=== PATIENT | male | born 1950 | race Caucasian/White ===

== ENCOUNTER 2020-06-25 02:54 | Inpatient (IN) | payer MEDICARE ==
[2020-06-25] MEDS ORDERED: Ondansetron PF 4 MG/2 ML Vial ONE (03:20)
[2020-06-25] MEDS ORDERED: Dicyclomine 20 MG TAB ONE (03:20)
[2020-06-25 03:41] LABS: #Eosinphils 0.1 thou/uL (0.0-0.7); #Lymphocytes 1.3 thou/uL (1.20-3.40); #Monocytes 0.6 thou/uL (0.11-0.59); #Neutrophils 8.6 thou/uL (1.40-6.50); %Basophils 0.3 % (0.0-1.0); %Eosinophils 0.7 % (0.0-10.0); %Lymphocytes 12.4 % (21.0-51.0); %Monocytes 5.5 % (0.0-10.0); %Neutrophils 81.1 % (42.0-75.0); Mean Corpuscular HGB CONC 34.3 g/dL (32.0-36.0); Mean Corpuscular Hemoglobin 32.1 pg (27.0-31.0); Mean Corpuscular Volume 93.7 fL (78.0-98.0); Mean Platelet Volume 7.2 fL (7.4-10.4); Platelet Count 321 thou/uL (130-400); RBC Distribution Width 12.5 % (11.5-14.5); Red Blood Cell (RBC) Count 5.29 mill/uL (4.70-6.10); White Blood Cell (WBC) Count 10.5 thou/uL (4.8-10.8)
[2020-06-25 04:03] LABS: ALT (SGPT) 487 U/L (8-55); AST (SGOT) 277 U/L (5-34); Albumin 3.7 g/dL (3.4-4.8); Alkaline Phosphatase 88 U/L (40-110); Anion Gap 15 mmol/L (10-20); BUN (Urea Nitrogen) 23 mg/dL (8.4-25.7); Bilirubin, Total 8.8 mg/dL (0.2-1.2); Calc. Creatinine Clearance 0 mL/min (70-130); Calcium 9.4 mg/dL (7.8-10.44); Carbon Dioxide 24 mmol/L (23-31); Chloride 101 mmol/L (98-107); Estimated GFR-MDRD Greater than 90; Globulin 3.9 g/dL (2.4-3.5); Glucose 158 mg/dL (80-115); Potassium 3.4 mmol/L (3.5-5.1); Protein, Total 7.6 g/dL (5.8-8.1); Sodium 137 mmol/L (136-145)
[2020-06-25 04:17] LABS: Lipase 6825 U/L (8-78)
[2020-06-25] MEDS ORDERED: Morphine 4 MG/ML VIAL ONE (05:45)
[2020-06-25] MEDS ORDERED: Ondansetron ODT 4 MG TAB SL PRN (07:30)
[2020-06-25] MEDS ORDERED: Ondansetron PF 4 MG/2 ML Vial IVP PRN ×2 (07:30→07:41)
[2020-06-25] MEDS ORDERED: Acetaminophen 325 MG TAB PO PRN (07:30)
[2020-06-25] MEDS ORDERED: Sodium Chloride 0.9% 1,000 ML IV SCH ×2 (07:30→07:45)
[2020-06-25] MEDS ORDERED: Ondansetron ODT 4 MG TAB PO PRN (07:41)
[2020-06-25] MEDS ORDERED: Potassium Chloride 20 MEQ TAB PO SCH (07:45)
--- NOTE | 2020-06-25 08:01 | PDOC.HHP ---
Hospitalist HPI - History of Present Illness Abdominal pain History of Present Illness: ADMISSION DATE: 02/22/2010 TIME OF ASSESSMENT: 0700 PRIMARY CARE PHYSICIAN: CHIEF COMPLAINT: Dr. Chu HPI: This is a 69-year-old gentleman who presents to the emergency department with complaints of abdominal pain. Said first started last night and reports associated nausea with vomiting. Denies any hematemesis and states he was dry heaving. The dry heaving has since settled but his abdominal discomfort continu es. Denies having any pain like this in the past. Denies any associated fevers chills or sweats. Reports having chronically loose stools due to history of ulcerative colitis status post bowel resection. Has not noted any changes in the stools. At present the discomfort is a 3 out of 10 in severity mainly C upper abdomen described as a cramping sensation. ED COURSE: In the ED the patient had an EKG done showing normal sinus rhythm with a heart rate of 70. No ST changes or T wave abnormalities. He received 4 mg of IV ondansetron for nausea. He was given 1 L of normal saline. For abdominal cramping he received 20 mg of dicyclomine IM. Also given 4 mg of IV morphine. Laboratory studies done showed a white count of 10.5, hemoglobin 17, hematocrit 49.6, platelets 321, neutrophils 81.1%. Potassium 3.4. BUN 23, creatinine 0.79, GFR greater than 90. Total bilirubin 8.8, AST 277, ALT 47, alk phos 88, troponin negative. Lipase 6825. CT abdomen and pelvis done with radiology report pending. PAST MEDICAL HISTORY: 1. Ulcerative colitis 2. Obesity 3. Glaucoma PAST SURGICAL HISTORY: 1. Bowel resection for ulcerative colitis 2. Tonsillectomy 3. Eye surgery SOCIAL HISTORY: Denies any history of alcohol consumption. Denies any tobacco use or drug use. He is fully independent at baseline. Walks without the use of assistive devices. FAMILY HISTORY: His father was diagnosed with colon cancer. ALLERGIES: No known drug allergies CURRENT MEDICATIONS: 1. Aspirin 81 mg p.o. daily 2. Sulfasalazine 500 mg p.o. daily 3. Bisoprolol 5 mg p.o. daily - Exam General Appearance: NAD, awake alert General - other findings: Vital signs: Temp 98.1, HR 84, RR 18, O2 sat 97% on room air, BP 141/76. Eye: PERRL, anicteric sclera ENT: normocephalic atraumatic, no oropharyngeal lesions Neck: supple, no lymphadenopathy Heart: RRR, normal peripheral pulses Respiratory: CTAB, no wheezes, no rales, no ronchi, normal chest expansion, no tachypnea Gastrointestinal: soft, non-distended, no guarding Gastrointestinal - other findings: discomfort w/palpation across upper abdomen, worse in epigastric/RUQ area Extremities: no edema Skin: normal turgor, no lesions, no rashes Neurological: cranial nerve grossly intact, normal sensation to touch, no weakness Musculoskeletal: normal tone, normal strength, no muscle wasting Psychiatric: normal affect, normal behavior, A&O x 3 Hospitalist Results - Labs Result Diagrams: 06/25/20 03:24 06/25/20 03:24 Lab results: WBC 10.5 thou/uL (4.8-10.8) 06/25/20 03:24 Hgb 17.0 g/dL (14.0-18.0) 06/25/20 03:24 Hct 49.6 % (42.0-52.0) 06/25/20 03:24 MCV 93.7 fL (78.0-98.0) 06/25/20 03:24 Plt Count 321 thou/uL (130-400) 06/25/20 03:24 Neutrophils % 81.1 % (42.0-75.0) H 06/25/20 03:24 Sodium 137 mmol/L (136-145) 06/25/20 03:24 Potassium 3.4 mmol/L (3.5-5.1) L 06/25/20 03:24 Chloride 101 mmol/L (98-107) 06/25/20 03:24 Carbon Dioxide 24 mmol/L (23-31) 06/25/20 03:24 BUN 23 mg/dL (8.4-25.7) 06/25/20 03:24 Creatinine 0.79 mg/dL (0.7-1.3) 06/25/20 03:24 Glucose 158 mg/dL (80-115) H 06/25/20 03:24 Calcium 9.4 mg/dL (7.8-10.44) 06/25/20 03:24 Total Bilirubin 8.8 mg/dL (0.2-1.2) H 06/25/20 03:24 AST 277 U/L (5-34) H 06/25/20 03:24 ALT 487 U/L (8-55) H 06/25/20 03:24 Alkaline Phosphatase 88 U/L (40-110) 06/25/20 03:24 Troponin I 0.012 ng/mL (< 0.028) 06/25/20 03:24 Serum Total Protein 7.6 g/dL (5.8-8.1) 06/25/20 03:24 Albumin 3.7 g/dL (3.4-4.8) 06/25/20 03:24 Lipase 6825 U/L (8-78) H 06/25/20 03:24 - Radiology Interpretation CT scan - abdomen Status: pending Hospitalist H&P A/P - Problem (1) Pancreatitis Code(s): K85.90 - ACUTE PANCREATITIS WITHOUT NECROSIS OR INFECTION, UNSP Status: Acute Assessment and Plan: Continue IV fluids Morphine prn for pain GI consult placed Lipid panel ordered CT A/P reading pending. Lactic acid ordered. (2) Hyperbilirubinemia Code(s): E80.6 - OTHER DISORDERS OF BILIRUBIN METABOLISM Status: Acute Assessment and Plan: Monitor LFTs. Check coags and direct bili. RUQ US ordered. GI consult placed. NPO pending GI review. (3) Ulcerative colitis Code(s): K51.90 - ULCERATIVE COLITIS, UNSPECIFIED, WITHOUT COMPLICATIONS Status: Chronic Assessment and Plan: Hold sulfasalazine for now given elevated LFTs. GI recommendations appreciated. (4) Electrolyte abnormality Code(s): E87.8 - OTH DISORDERS OF ELECTROLYTE AND FLUID BALANCE, NEC Status: Acute Assessment and Plan: K+ 3.3, will replace. Check Mg+ Monitor electrolytes and replace as needed. - Plan Plan: GI prophylaxis with Famotidine. DVT Prophylaxis with mechanical SCDs. Patient ambulatory. Consider pharmacoprophylaxis if no indication to hold for procedure. (Awaiting CT abdomen/pelvis report). CODE STATUS FULL Case discussed with attending who agrees with plan as above.
--- NOTE | 2020-06-25 08:24 | CT ---
PRELIMINARY REPORT/[facility]/EMERGENCY AFTER HOURS PROCEDURE: EXAM: CT Abdomen and Pelvis with Intravenous Contrast CLINICAL HISTORY: 69yo M with hx of ulcerative colitis status post resection presents for epigastric abdominal pain. St ates he first experienced it last night accompanied by nausea and vomiting but was able to get to bed TECHNIQUE: Axial computed tomography images of the abdomen and pelvis with intravenous contrast. CONTRAST: With; ISOVUE 370,100mL COMPARISON: NONE PROVIDED. FINDINGS: LUNG BASES: No basilar airspace consolidation or pleural effusion. Some chronic appearing pleuroparenchymal suero ges at the lung bases. LIVER: Unremarkable. GALLBLADDER AND BILE DUCTS: There is a small stone present within the gallbladder which is mostly contracted. Intra-and extrahep atic biliary tree however are quite prominent, especially in the lateral segment of the left lobe. N o obvious ductal stones are seen. No obvious mass. Pancreas: Abundant peripancreatic mesenteric induration is noted with fairly normal appearing enhancement of th e pancreas itself. No mass, pseudocyst, or evidence of pancreatic necrosis. SPLEEN: Unremarkable. ADRENAL GLANDS: Unremarkable. KIDNEYS, URETERS, AND BLADDER: Unremarkable. No hydronephrosis or nephrolithiasis. No ureteral or bladder calculi. STOMACH AND BOWEL: Status post near total colectomy. Remaining GI segments without specific abnormalities. APPENDIX: No CT evidence for appendicitis. PERITONEUM: No free fluid. No free air. LYMPH NODES: No lymphadenopathy. VASCULATURE: No aortic aneurysm. BONES: No fracture or suspicious osseous abnormality. Degenerative changes of the lumbar spine. ABDOMINAL WALL AND SOFT TISSUES: Unremarkable. IMPRESSION: Acute pancreatitis. Small gallstone. Some intra-and extrahepatic biliary dilatation is noted. Nghia elation with liver function tests is recommended. ELECTRONICALLY SIGNED BY: Lorenzo Dumont MD Jun 25, 2020 4:44:35 AM AIRCRAFT ENGINEER This report is intended for review by the ordering physician only, in accordance of law. If you recei ve this report in error, please call [facility] at [phone]. FINAL REPORT EMERGENCY AFTER HOURS CT ABDOMEN AND PELVIS PERFORMED WITH IV CONTRAST ENHANCEMENT: Date: 06/25/2020 HISTORY: Patient has a history of ulcerative colitis, now with abdominal pain more epigastric. FINDINGS: Lung bases show some peripheral reticular opacity in the right base. This could be largely on the bas is of scar. There are some more confluent parenchymal changes within the left lower lobe. These are s till felt to be more likely atelectatic than infiltrative in nature. The liver shows diffuse fatty change. The spleen is within normal limits of size. There are peripancr eatic inflammatory changes compatible with pancreatitis. Small probable stone is seen in the gallblad jaye neck. The gallbladder itself is not distended. There is intrahepatic ductal dilatation with moder ate dilatation of the left biliary ducts and the extrahepatic duct appears dilated. I do not visualiz e a definite ductal calculus. Right and left adrenal glands, and right and left kidneys are normal in size. No significant periaort ic or mesenteric adenopathy. CT of pelvis was performed with contrast enhancement. There are partial colectomy changes noted. No a denopathy, mass, or free fluid. IMPRESSION: 1. Radiographic changes of pancreatitis. There is a small gallstone in the gallbladder neck and ther e is intra and extrahepatic biliary ductal dilatation. The intrahepatic ductal dilatation is unusual in that it predominantly involves the left lobe; however, I can see the confluence of the right and l eft bile ducts forming the common bile duct. I do not see any type of concerning mass in this region. I do not see a definite ductal calculus, but this should be a definite consideration in this case, a nd consideration for ERCP or MRCP would be recommended. 2. Fatty change of the liver. 3. Partial colectomy change noted. Report in basic agreement with the preliminary report issued by [facility]. [place]: [facility] [place]
[2020-06-25] MEDS: Morphine 4 MG/ML VIAL SLOW IVP PRN ×3 (09:00→19:50)
[2020-06-25] MEDS ORDERED: Famotidine 20 MG TAB PO SCH (09:00)
[2020-06-25 09:35] LABS: Lactic Acid 1.5 mmol/L (0.5-2.2)
[2020-06-25 09:37] LABS: INR-International Normal Ratio 1.1; PTT 26.2 sec (22.9-36.1); Prothrombin Time 14.4 sec (12.0-14.7)
[2020-06-25 09:51] LABS: Bilirubin, Direct 5.6 mg/dL (0.1-0.3); Cardiac Risk 4.5 (Less than 4.5)
[2020-06-25 09:56] VITALS: BMI 33.4
--- NOTE | 2020-06-25 10:41 | ULT ---
RIGHT UPPER QUADRANT ULTRASOUND: Date: 06/25/2020 COMPARISON: CT abdomen and pelvis 06/25/2020. HISTORY: Right upper quadrant pain, pancreatitis, assess for cholelithiasis. TECHNIQUE: Multiplanar Adler scale sonographic imaging of the right upper quadrant provided. FINDINGS: Imaged portions of the pancreas demonstrate mild heterogeneity. The pancreas is not well visualized o n this study secondary to bowel gas and is well assessed on the 06/25/2020 CT exam. The hepatic paren chyma is mildly echogenic and heterogeneous suggesting hepatocellular disease, such as steatosis. The re is intrahepatic biliary dilatation, better assessed on recent CT examination. There are multiple s ubcentimeter shadowing stones within the gallbladder lumen. Gallbladder wall is upper limits of jarret l in size. The chart calculator reports a positive Olson's sign. No significant pericholecystic fluid is seen. The common bile duct measures 5.0 mm. Right kidney measures 12.7 cm in craniocaudal dimension and demonstrates no evidence for stone, hydro nephrosis, or mass lesion. There is a probable tiny cyst within the right kidney measuring 7-8 mm. IMPRESSION: Intrahepatic biliary dilatation, better assessed on recent CT exam. There is cholelithiasis with uppe r limits of normal gallbladder wall thickness and positive Olson's sign. Positive Olson's sign coul d reflect acute cholecystitis, or could be related to right upper quadrant pain associated with acute pancreatitis seen on recent CT. GI consultation is advised with regard to the intrahepatic biliary d ilatation seen on this examination. POS: [facility]
[2020-06-25] MEDS: Sodium Chloride 0.9% 1,000 ML IV SCH ×4 (13:17→22:22)
[2020-06-25 13:36] LABS: #Basophils 0.1 thou/uL (0.0-0.2); #Lymphocytes 1.7 thou/uL (1.20-3.40); #Monocytes 0.9 thou/uL (0.11-0.59); #Neutrophils 11.2 thou/uL (1.40-6.50); %Basophils 0.4 % (0.0-1.0); %Eosinophils 0.3 % (0.0-10.0); %Monocytes 6.3 % (0.0-10.0); Hemoglobin 15.8 g/dL (14.0-18.0); Mean Corpuscular HGB CONC 33.7 g/dL (32.0-36.0); Mean Corpuscular Hemoglobin 31.8 pg (27.0-31.0); Mean Corpuscular Volume 94.3 fL (78.0-98.0); Mean Platelet Volume 7.3 fL (7.4-10.4); Platelet Count 322 thou/uL (130-400); RBC Distribution Width 12.6 % (11.5-14.5); Red Blood Cell (RBC) Count 4.96 mill/uL (4.70-6.10); White Blood Cell (WBC) Count 13.9 thou/uL (4.8-10.8)
[2020-06-25] MEDS ORDERED: Iopamidol-370 76% 500 ML 1 ML ONE (13:54)
[2020-06-25 14:00] LABS: ALT (SGPT) 387 U/L (8-55); AST (SGOT) 197 U/L (5-34); Albumin 3.2 g/dL (3.4-4.8); Alkaline Phosphatase 80 U/L (40-110); Anion Gap 12 mmol/L (10-20); BUN (Urea Nitrogen) 17 mg/dL (8.4-25.7); Bilirubin, Total 7.6 mg/dL (0.2-1.2); Calc. Creatinine Clearance 158 mL/min (70-130); Calcium 8.4 mg/dL (7.8-10.44); Carbon Dioxide 24 mmol/L (23-31); Chloride 107 mmol/L (98-107); Estimated GFR-MDRD Greater than 90; Globulin 3.7 g/dL (2.4-3.5); Glucose 112 mg/dL (80-115); Potassium 3.8 mmol/L (3.5-5.1); Protein, Total 6.9 g/dL (5.8-8.1); Sodium 139 mmol/L (136-145)
--- NOTE | 2020-06-25 14:29 | CON ---
DATE OF CONSULTATION: REASON FOR CONSULT: Pancreatitis and hyperbilirubinemia. HISTORY OF PRESENT ILLNESS: Mr. Marroquin is a 69-year-old gentleman, who came into the emergency room here last night about 3 a.m. with three days of severe abdominal pain, initially started about 2 to 3 days ago, epigastrium radiating to the back, then got a little better, but then it got worse, he decided to come in. He knows his stomach has not really felt right for several months, just vague discomfort at times. He was found to have acute pancreatitis, admitted to the hospital. He received 1 L of fluid in the ER and was placed on 100 mL an hour here. I was not called to see the patient, was notified by the nursing station of the consult this morning. By the time I am seeing him, he has received about 1.5 L of fluids since he has been here. He has urinated once. His pain is a little bit better controlled with narcotics. He denies any fever or chills. Denies any rigors. Denies any melena, hematochezia, or hematemesis. He does not recall the color of his urine. He denies pruritus. On admission, his bilirubin was 8.8 with an AST and ALT of 277 and 47 and a lipase of 6825. His BUN and creatinine were 23 and 0.78. His hemoglobin of 17, white count of 10, and a platelet count of 321. The patient denies any significant alcohol use. Here, he had a CAT scan of abdomen and pelvis that showed a stone in the gallbladder. Intra and extrahepatic biliary tree dilatation, left lobe more so. Abundant pancreatic mesenteric induration with normal enhancement. Ultrasound at 7:20 today showed intrahepatic ductal dilatation, cholelithiasis. PAST MEDICAL HISTORY: 1. No prior admissions for pancreatitis that the patient knows of. He does have a history of ulcerative colitis with subtotal colectomy and ileorectal anastomosis. This has not bothered him since that was done. 2. Obesity. 3. Glaucoma. PAST SURGICAL HISTORY: Above noted colon resection, tonsillectomy, and retinal surgery. SOCIAL HISTORY: The patient does not drink alcohol on regular basis. Does not smoke or use drugs. FAMILY HISTORY: His father had colon cancer. No family history of pancreatic disease. ALLERGIES: NONE KNOWN. MEDICATIONS: Medicines at home; 1. Aspirin. 2. Sulfasalazine. 3. Bisoprolol. Medications here; 1. He has received 1.5 L of fluid. 2. Tylenol. 3. Pepcid b.i.d. 4. Zofran. 5. IV fluid normal saline 100 an hour. PHYSICAL EXAMINATION: VITAL SIGNS: Temperature is 98.6, his pulse is 79 at 11 and it was 84 at 7, and blood pressure 149/76. GENERAL: He is resting in bed. He just received some morphine. HEENT: He is not appreciably icteric that I can tell, although the fluorescent lighting makes it difficult to know. NECK: Supple without nodes. LUNGS: Clear. HEART: Regular without clicks or murmurs. ABDOMEN: Soft. He is mildly tender in the epigastrium without rebound or guarding. There is no palpable hepatosplenomegaly. There is no bruising in the flanks or umbilical area. EXTREMITIES: No clubbing, cyanosis, or edema. LABORATORY DATA: Repeat chemistry showed a bilirubin of 5.6 direct and a magnesium of 2, triglycerides of 80. Lipase, electrolytes, and CBC have not been rechecked. ASSESSMENT: 1. This is a gentleman with severe gallstone pancreatitis. He has had inadequate fluid resuscitation, receiving only a liter in the ER and 100 mL an hour since admission. He is at high risk for developing complications of pancreatitis including necrotizing pancreatitis, pseudocyst and phlegmon. 2. He has elevated liver enzymes suggestive of choledocholithiasis etiology, it is unclear if he has passed the stone at this point in time. He shows no signs of cholangitis. RECOMMENDATIONS: Aggressive fluid resuscitation. I have called in orders 2 hours ago to the nurse for normal saline at 250 mL an hour. Repeat labs now to see if he is responding to resuscitation and how he is doing. If he has decompensation, he needs to be moved to the ICU. If he develops any signs of cholangitis, he would need ERCP. If he shows signs of not passing the stone with his labs at 24 hours, he may need an ERCP. At present, we will not proceed with ERCP as the risk outweighs the benefits. He is less than 12 hours in the hospitalization, he shows no signs of cholangitis. These were discussed with the patient, the nurse, and primary physician. Job ID: [id number]
[2020-06-26] MEDS ORDERED: Morphine 4 MG/ML VIAL SLOW IVP PRN (01:10)
[2020-06-26] MEDS: Acetaminophen 325 MG TAB PO PRN ×2 (01:28→23:24)
[2020-06-26] MEDS: Sodium Chloride 0.9% 1,000 ML IV SCH ×2 (02:22→06:19)
[2020-06-26 05:48] LABS: #Eosinphils 0.1 thou/uL (0.0-0.7); #Lymphocytes 2.1 thou/uL (1.20-3.40); #Monocytes 1.3 thou/uL (0.11-0.59); #Neutrophils 12.9 thou/uL (1.40-6.50); %Basophils 0.3 % (0.0-1.0); %Eosinophils 0.3 % (0.0-10.0); %Lymphocytes 12.6 % (21.0-51.0); %Monocytes 8.1 % (0.0-10.0); %Neutrophils 78.6 % (42.0-75.0); Hemoglobin 14.9 g/dL (14.0-18.0); Mean Corpuscular HGB CONC 34.1 g/dL (32.0-36.0); Mean Corpuscular Hemoglobin 31.6 pg (27.0-31.0); Mean Corpuscular Volume 92.7 fL (78.0-98.0); Mean Platelet Volume 7.7 fL (7.4-10.4); Platelet Count 292 thou/uL (130-400); RBC Distribution Width 12.6 % (11.5-14.5); Red Blood Cell (RBC) Count 4.72 mill/uL (4.70-6.10); White Blood Cell (WBC) Count 16.4 thou/uL (4.8-10.8)
[2020-06-26 06:11] LABS: ALT (SGPT) 267 U/L (8-55); AST (SGOT) 108 U/L (5-34); Albumin 2.9 g/dL (3.4-4.8); Alkaline Phosphatase 78 U/L (40-110); Anion Gap 12 mmol/L (10-20); BUN (Urea Nitrogen) 14 mg/dL (8.4-25.7); Bilirubin, Total 6.3 mg/dL (0.2-1.2); Calc. Creatinine Clearance 151 mL/min (70-130); Calcium 7.7 mg/dL (7.8-10.44); Carbon Dioxide 24 mmol/L (23-31); Chloride 108 mmol/L (98-107); Estimated GFR-MDRD Greater than 90; Glucose 104 mg/dL (80-115); Lipase 794 U/L (8-78); Magnesium 1.8 mg/dL (1.6-2.6); Potassium 3.3 mmol/L (3.5-5.1); Protein, Total 6.2 g/dL (5.8-8.1); Sodium 141 mmol/L (136-145)
--- NOTE | 2020-06-26 08:11 | CON ---
DATE OF CONSULTATION: 06/26/2020 CONSULTING PHYSICIAN: Hospitalist Service. REASON FOR CONSULTATION: Pancreatitis and cholelithiasis. HISTORY OF PRESENT ILLNESS: The patient is a 69-year-old white male. He was admitted to the hospital early yesterday morning with severe abdominal pain. He noted some degree of abdominal discomfort for the past few days. It became severe early yesterday morning. When he presented to the hospital, he had laboratory and radiologic evaluation. He was noted on CT scan to have evidence of pancreatitis and cholelithiasis. Laboratory studies revealed evidence of pancreatitis with hyperbilirubinemia. His bilirubin level was 8.8, AST and ALT were elevated and lipase was elevated at 6825. His hemoglobin was 17. His white blood cell count was 10.5. He was made n.p.o., given IV fluids and admitted to the hospital. Gastroenterology consultation was obtained with Dr. Mcallister yesterday. He instituted much higher volume IV fluid resuscitation. The patient has been receiving 250 mL/h for the past 24 hours. He notes that he has urinated substantial volumes overnight. He had some vomiting before he presented. He now feels somewhat bloated and nauseated. He has had a couple of bowel movements since he has been in a hospital. He notes his discomfort is much better than when he presented. He has not really ambulated at all as he tells me he feels weak. Subsequent laboratory studies had been obtained yesterday and today and show that his white blood cell count has gone up and is currently 16.4, hemoglobin is relatively stable at 14.9. His electrolytes show some current hypokalemia and hyperchloremia. His creatinine remains normal at 0.6. His bilirubin has dropped down to 6.3 this morning. His AST and ALT have trended downwards as well. His lipase has dropped down to 794. PAST MEDICAL HISTORY: 1. History of ulcerative colitis. 2. Glaucoma. 3. Hypertension. PAST SURGICAL HISTORY: 1. Subtotal colectomy in 2005 in treatment of his ulcerative colitis. 2. Tonsillectomy. 3. Retinal surgery. CURRENT MEDICATIONS: 1. Aspirin. 2. Sulfasalazine. 3. Bisoprolol. ALLERGIES: NO KNOWN DRUG ALLERGIES. PRIMARY CARE PHYSICIAN: Dr. Rowe. LOWER IN SUPERVISOR: Dr. Queen. PERSONAL SOCIAL HISTORY: He is with one child. He is a retired [employer] consultant. He currently lives by himself in [place]. He does not smoke and does not drink alcohol significantly. Denies illegal drug use. REVIEW OF SYSTEMS: Patient notes that since his subtotal colectomy that he has had an average of about 6 loose bowel movements per day over the past 15 years. FAMILY HISTORY: Noncontributory. PHYSICAL EXAMINATION: VITAL SIGNS: Current temperature is 98.5, maximum temperature since admission is 100.0; pulse is 89; blood pressure 139/76. GENERAL: This is a well-developed, well-nourished, pleasant white male, resting in bed, in no acute distress. He is somewhat uncomfortable. He is alert and oriented x3. HEAD, EYES, EARS, NOSE, AND THROAT: Unremarkable. NECK: Supple without mass or tenderness. LUNGS: Clear to auscultation throughout. CARDIAC: Regular rate and rhythm without murmur. ABDOMEN: Nondistended. He has hypoactive, but definitely present bowel sounds. He has mild diffuse discomfort with more discomfort present on palpation of the upper abdomen. There are no peritoneal findings. EXTREMITIES: Unremarkable. LABORATORY DATA: As mentioned above. ASSESSMENT: The patient with acute pancreatitis. It appears to be secondary to cholelithiasis and associated with hyperbilirubinemia. Although his white blood cell count is trending upwards, his bilirubin level and lipase level and other liver function tests are all trending downwards. I suspect therefore that he likely passed a gallstone that initiated all of this. In light of his current discomfort, he is certainly not ready for cholecystectomy yet. I had a long discussion with the patient about gallstone pancreatitis and told that I would eventually recommend laparoscopic cholecystectomy at the point that his pancreatitis is improved to the point that I believe that he is safe to proceed with surgery. This maybe as early as tomorrow or perhaps the following day. I will decrease his IV fluid rate and correct for his electrolyte abnormalities. I believe he is safe to begin a clear-liquid diet. He should begin incentive spirometry so he does not develop atelectasis associated with his abdominal discomfort. I have also encouraged him to ambulate around the hospital floor several times per day. Thank you for this consult. I will continue to follow him while he is here in the hospital with plans for eventual laparoscopic cholecystectomy. Job ID: [id number]
[2020-06-26] MEDS: Pantoprazole 40 MG VIAL IVP SCH (08:44)
[2020-06-26] MEDS: D5 1/2 NS w/20 mEq KCL 1,000 ML IV SCH ×3 (08:44→23:25)
[2020-06-26] MEDS ORDERED: Electrolyte Replacement Protoc 1 EACH EACH FS SCH (09:15)
[2020-06-26] MEDS ORDERED: Electrolyte Replacement Protocol FS PRN (09:30)
[2020-06-26] MEDS ORDERED: Magnesium 2 GM/50 ML 2 GM in Premix Bag 1 BAG IVPB SCH (10:15)
[2020-06-26 10:17] LABS: SARS-CoV-2 MS2 Positive; SARS-CoV-2 N Gene Negative; SARS-CoV-2 S Gene Negative; SARS-CoV-2 by NAA Not Detected (NotDetected); SARS-CoV-2 orf1ab Negative
[2020-06-26] MEDS: Potassium Chloride 20 MEQ in Premix Bag 1 BAG IVPB SCH ×2 (11:57→13:38)
--- NOTE | 2020-06-26 14:24 | EKG ---
Test Reason : Blood Pressure : / mmHG Vent. Rate : 070 BPM Atrial Rate : 070 BPM P-R Int : 156 ms QRS Dur : 084 ms QT Int : 384 ms P-R-T Axes : 012 019 -02 degrees QTc Int : 414 ms Normal sinus rhythm Normal ECG Confirmed by RAMYA TOMPKINS DO ([id number]), editor school photograph EDSON FELDMAN ([id number]) on 06/26/2020 2:24:37 PM Referred By: Confirmed By:RAMYA TOMPKINS DO
--- NOTE | 2020-06-26 21:34 | PDOC.HOSPP ---
- Subjective Encounter Date: 06/26/20 Encounter Time: 10:00 - Objective Vital Signs & Weight: Vital Signs (12 hours) Temp Pulse Resp BP Pulse Ox 06/26/20 19:58 99.6 F 83 18 139/74 95 06/26/20 16:00 97.9 F 83 18 140/75 96 06/26/20 12:42 98.9 F 79 18 133/74 95 Weight Weight 219 lb 12.814 oz I&O: 06/25/20 06/26/20 06/27/20 06:59 06:59 06:59 Intake Total 5500 2610 Output Total 1600 Balance 3900 2610 Result Diagrams: 06/27/20 05:12 06/27/20 05:12 Hospitalist ROS - Medication Medications: Active Medications Generic Name Dose Route Start Last Admin Trade Name Freq PRN Reason Stop Dose Admin Acetaminophen 650 mg 06/26/20 01:25 06/26/20 01:28 Acetaminophen 325 Mg Tab PO 650 mg Q4H PRN Administration Headache/Fever or Pain Potassium Chloride/Dextrose/Sod Cl 1,000 mls @ 150 mls/hr 06/26/20 07:45 06/26/20 13:40 D5 1/2 Ns W/20 Meq Kcl IV Not Given .Q6H40M SANTIAGO Pantoprazole Sodium 40 mg 06/26/20 09:00 06/26/20 08:44 Pantoprazole 40 Mg Vial IVP 40 mg DAILY SANTIAGO Administration Hosp A/P - Plan This is a 69-year-old male with a history of ulcerative colitis status post subtotal colectomy and ileorectal anastomosis on admission on account of gallstone pancreatitis. Gallstone pancreatitis Currently on fluid swelling pain control. Once resolved plans for cholecystectomy GI/surgery on board. History of ulcerative colitis On sulfasalazinecurrently held We will monitor. Hypokalemia Check mag in a.m. Replacement protocol Obesity VT prophylaxis Lovenox CODE STATUSfull
[2020-06-27] MEDS: D5 1/2 NS w/20 mEq KCL 1,000 ML IV SCH (03:45)
--- NOTE | 2020-06-27 04:13 | PRG ---
DATE OF SERVICE: 06/26/2020 SUBJECTIVE: Mr. Marroquin feels better today. Still has some abdominal soreness. He has voided some. He is going to start liquids. OBJECTIVE: VITAL SIGNS: Temperature max 100 and that was on 06/26 at midnight, temperature current 98.9, pulse 76, blood pressure 133/74. ABDOMEN: filter press tender in the epigastrium, mildly. There are starting to be some bowel sounds. There are no bruising or lesions in the abdominal wall. EXTREMITIES: No clubbing, cyanosis, or edema. There is no presacral edema. LUNGS: Clear. LABORATORY DATA: Sodium 141, potassium 3.3, BUN and creatinine are 14 and 0.6, calcium 7.7, bilirubin 6.3 down from 7.6 yesterday, 8.8 on admission. AST and ALT are 108 and 267, down from 277 and 487 on admission. Lipase 794. ASSESSMENT: Biliary pancreatitis, improving. RECOMMENDATIONS: Agree with decreasing IV fluids. Agree with trial of clear liquids. Continue to follow LFTs. The patient will be ready for laparoscopic cholecystectomy hopefully in 24 to 48 hours. If liver enzymes remain elevated, may ultimately need ERCP. At present, there are no signs of cholangitis or sepsis. With improving labs, liver function test and lipase and clinical status, we will hold off on emergent ERCP for now. Job ID: [id number]
[2020-06-27 05:54] LABS: #Basophils 0.1 thou/uL (0.0-0.2); #Eosinphils 0.2 thou/uL (0.0-0.7); #Lymphocytes 2.7 thou/uL (1.20-3.40); #Monocytes 1.7 thou/uL (0.11-0.59); #Neutrophils 13.6 thou/uL (1.40-6.50); %Basophils 0.7 % (0.0-1.0); %Lymphocytes 14.6 % (21.0-51.0); %Monocytes 9.1 % (0.0-10.0); %Neutrophils 74.6 % (42.0-75.0); Hemoglobin 14.4 g/dL (14.0-18.0); Mean Corpuscular HGB CONC 34.2 g/dL (32.0-36.0); Mean Corpuscular Hemoglobin 31.7 pg (27.0-31.0); Mean Corpuscular Volume 92.6 fL (78.0-98.0); Mean Platelet Volume 8.1 fL (7.4-10.4); Platelet Count 281 thou/uL (130-400); RBC Distribution Width 12.5 % (11.5-14.5); Red Blood Cell (RBC) Count 4.54 mill/uL (4.70-6.10); White Blood Cell (WBC) Count 18.2 thou/uL (4.8-10.8)
[2020-06-27] MEDS: Acetaminophen 325 MG TAB PO PRN (06:03)
[2020-06-27] MEDS: Morphine 4 MG/ML VIAL SLOW IVP PRN ×4 (06:07→18:34)
[2020-06-27 06:18] LABS: ALT (SGPT) 189 U/L (8-55); AST (SGOT) 66 U/L (5-34); Alkaline Phosphatase 93 U/L (40-110); Anion Gap 11 mmol/L (10-20); BUN (Urea Nitrogen) 13 mg/dL (8.4-25.7); Bilirubin, Total 4.9 mg/dL (0.2-1.2); Calc. Creatinine Clearance 153 mL/min (70-130); Calcium 8.1 mg/dL (7.8-10.44); Carbon Dioxide 24 mmol/L (23-31); Chloride 104 mmol/L (98-107); Estimated GFR-MDRD Greater than 90; Globulin 3.4 g/dL (2.4-3.5); Glucose 124 mg/dL (80-115); Lipase 142 U/L (8-78); Potassium 3.2 mmol/L (3.5-5.1); Protein, Total 6.4 g/dL (5.8-8.1); Sodium 136 mmol/L (136-145)
[2020-06-27] MEDS: D5 1/2 NS w/40 mEq KCL 1,000 ML IV SCH ×2 (08:04→16:02)
[2020-06-27] MEDS: Pantoprazole 40 MG VIAL IVP SCH (08:10)
[2020-06-27] MEDS ORDERED: Magnesium 2 GM/50 ML 2 GM in Premix Bag 1 BAG IVPB SCH (08:30)
--- NOTE | 2020-06-27 08:50 | PRG ---
DATE OF SERVICE: 06/27/2020 SUBJECTIVE: Mr. Marroquin remains on the medical floor, having been admitted for gallstone pancreatitis. He tells me that he had a bad night, has felt very poorly today. He feels distended and has had significant abdominal pain. He is ambulating on the floor. He has had some clear liquids, but has had some nausea as well. PHYSICAL EXAMINATION: VITAL SIGNS: He is afebrile. Maximum temperature is a 100, pulse is 77, blood pressure 133/72. LUNGS: Clear to auscultation. ABDOMEN: Somewhat distended, but soft with hypoactive bowel sounds. He does seem to have less epigastric tenderness than previously. He reports that much of his discomfort is in his lower abdomen. LABORATORY DATA: His CBC shows that his white blood cell count continues to elevate. It was 16 yesterday, it is 18 today. Hemoglobin stable at 14. His liver function tests are all improving. His bilirubin has dropped from 6.3 to 4.9. His lipase has also dropped from 790 down to 140. His potassium level dropped down to 3.2. ASSESSMENT: Patient with gallstone pancreatitis. It appears to be resolving and this improving except for his white blood cell count. Although, it seems unlikely that he has an actual infectious process, I will start him on empiric antibiotics using Zosyn. He is encouraged to continue to ambulate and drink clear liquids. I will plan on his laparoscopic cholecystectomy and cholangiogram tomorrow. He clearly does not have findings that would be typical of cholangitis at this time. I have discussed all this with the patient. He understands and agrees to proceed in this fashion. Job ID: [id number]
[2020-06-27] MEDS: Potassium Chloride 20 MEQ in Premix Bag 1 BAG IVPB SCH ×2 (10:16→16:02)
[2020-06-27] MEDS: Polyethylene Glycol 3350 17 GM Packet PO SCH ×2 (10:24→22:30)
--- NOTE | 2020-06-27 11:38 | PRG ---
DATE OF SERVICE: 06/27/2020 SUBJECTIVE: Mr. Marroquin'pieter abdomen hurt pretty bad last night. It Feels much better today. He has had a small bowel movement. He is voiding. He has had no rigors or chills. OBJECTIVE: VITAL SIGNS: T-max yesterday 100, T current 98.5, pulse of 87, blood pressure 132/72. In's and out's 1600. NECK: Supple. LUNGS: Clear. Decreased breath sounds at the bases. HEART: Regular rate and rhythm. ABDOMEN: Protuberant. It is tender in the epigastrium, but less so than yesterday. LABORATORY DATA: White count is 18.2, up from 10 on admission, 16 yesterday. Hemoglobin is 14.4, down from 17 on admission. Platelets are 281. Sodium 136, potassium 3.2, being replaced. BUN and creatinine are 13 and 0.65. Magnesium is 2. Bilirubin is 4.9, down from 6.3 yesterday and 8.8 on admission. AST and ALT are 66 and 189, down from 108 and 267 yesterday. Albumin is 3, protein is 6.3, lipase is 142, down from 749 yesterday, 6825 on admission. ASSESSMENT: 1. Low-grade fever with increasing white count. I suspect it is related to his pancreatitis and not cholangitis as the liver tests are improving. His abdominal pain is better. Other concerns would be thrombotic complications such as deep venous thrombosis. He has no pain. No shortness of breath. Pneumonia will be a possibility as well. 2. Severe biliary pancreatitis, improved. RECOMMENDATIONS: 1. Agree with lap marta tomorrow if clinically stable with IOC. If IOC is positive GI will be available to perform endoscopic retrograde cholangiopancreatography at the same anesthetic. I have discussed with the patient the risks, benefits, and possible complications of that procedure and we will get consent on that. 2. Would continue liquids. 3. We would start on Lovenox. 4. We will get a chest x-ray if he has further fever. 5. Agree with starting Zosyn and we will follow along with you. Job ID: [id number]
[2020-06-27] MEDS: Piperacillin/Tazobactam 3.375 GM in Sodium Chloride 0.9% 100 ML IVPB SCH ×2 (13:15→18:36)
--- NOTE | 2020-06-27 21:40 | PDOC.HOSPP ---
- Subjective Encounter Date: 06/27/20 Encounter Time: 10:00 Subjective: Patient was seen and examined in bed. He said he felt generally better. Still having abdominal pain but no chest pain or shortness of breath - Objective Vital Signs & Weight: Vital Signs (12 hours) Temp Pulse Resp BP Pulse Ox 06/27/20 20:00 98.2 F 85 16 142/78 H 96 Weight Admit Weight 219 lb 12.814 oz Weight 219 lb 12.814 oz I&O: 06/26/20 06/27/20 06/28/20 06:59 06:59 06:59 Intake Total 5500 4290 1900 Output Total 1600 600 Balance 3900 4290 1300 Result Diagrams: 06/27/20 05:12 06/27/20 05:12 Hospitalist ROS - Medication Medications: Active Medications Generic Name Dose Route Start Last Admin Trade Name Freq PRN Reason Stop Dose Admin Acetaminophen 650 mg 06/26/20 01:25 06/27/20 06:03 Acetaminophen 325 Mg Tab PO 650 mg Q4H PRN Administration Headache/Fever or Pain Potassium Chloride/Dextrose/Sod Cl 1,000 mls @ 125 mls/hr 06/27/20 07:00 06/27/20 16:02 D5 1/2 Ns W/40 Meq Kcl IV Not Given .Q8H SANTIAGO Piperacillin Sod/Tazobactam 100 mls @ 200 mls/hr 06/27/20 12:00 06/27/20 18:36 Sod 3.375 gm/ Sodium Chloride IVPB 100 mls Q6HR SANTIAGO Administration Morphine Sulfate 4 mg 06/26/20 01:20 06/27/20 18:34 Morphine 4 Mg/Ml Vial SLOW IVP 4 mg Q4H PRN Administration PAIN 6-10 Ondansetron HCl 4 mg 06/25/20 07:41 06/27/20 06:04 Ondansetron Pf 4 Mg/2 Ml Vial IVP 4 mg Q6H PRN Administration Nausea/Vomiting Pantoprazole Sodium 40 mg 06/26/20 09:00 06/27/20 08:10 Pantoprazole 40 Mg Vial IVP 40 mg DAILY SANTIAGO Administration Polyethylene Glycol 17 gm 06/27/20 09:00 06/27/20 10:24 Polyethylene Glycol 3350 17 Gm Packet PO Not Given BID SANTIAGO - Exam General Appearance: awake alert Eye: PERRL, anicteric sclera Heart: RRR, no murmur, no rubs Respiratory: no wheezes, no rales, no ronchi, normal chest expansion Gastrointestinal: soft, normal bowel sounds, tender to palpation Extremities: no cyanosis, no clubbing, no edema Hosp A/P - Plan This is a 69-year-old male with a history of ulcerative colitis status post subtotal colectomy and ileorectal anastomosis on admission on account of gallstone pancreatitis. Gallstone pancreatitis Leukocytosis worsened today He was started on Zosyn Plan for laparoscopic cholecystectomy tomorrow N.p.o. after midnight GI/surgery following. History of ulcerative colitis On sulfasalazinecurrently held We will monitor. Hypokalemia Still hypokalemic Potassium 2.0 Replacement protocol Obesity VT prophylaxis Lovenox CODE STATUSfull
[2020-06-27] MEDS: Enoxaparin Sodium 40 MG/0.4 ML SYRINGE SC SCH (22:30)
[2020-06-28] MEDS: D5 1/2 NS w/40 mEq KCL 1,000 ML IV SCH ×3 (00:06→11:00)
[2020-06-28] MEDS: Morphine 4 MG/ML VIAL SLOW IVP PRN ×3 (00:06→19:57)
[2020-06-28] MEDS: Piperacillin/Tazobactam 3.375 GM in Sodium Chloride 0.9% 100 ML IVPB SCH ×4 (00:07→19:11)
[2020-06-28 06:25] LABS: #Basophils 0.1 thou/uL (0.0-0.2); #Eosinphils 0.3 thou/uL (0.0-0.7); #Lymphocytes 2.5 thou/uL (1.20-3.40); #Monocytes 1.4 thou/uL (0.11-0.59); #Neutrophils 11.7 thou/uL (1.40-6.50); %Basophils 0.5 % (0.0-1.0); %Lymphocytes 15.7 % (21.0-51.0); %Monocytes 8.8 % (0.0-10.0); Mean Corpuscular HGB CONC 34.3 g/dL (32.0-36.0); Mean Corpuscular Hemoglobin 32.4 pg (27.0-31.0); Mean Corpuscular Volume 94.5 fL (78.0-98.0); Platelet Count 264 thou/uL (130-400); RBC Distribution Width 12.5 % (11.5-14.5); Red Blood Cell (RBC) Count 4.32 mill/uL (4.70-6.10); White Blood Cell (WBC) Count 16.1 thou/uL (4.8-10.8)
[2020-06-28 06:39] LABS: ALT (SGPT) 127 U/L (8-55); AST (SGOT) 41 U/L (5-34); Albumin 2.8 g/dL (3.4-4.8); Alkaline Phosphatase 73 U/L (40-110); Anion Gap 11 mmol/L (10-20); BUN (Urea Nitrogen) 11 mg/dL (8.4-25.7); Bilirubin, Total 3.1 mg/dL (0.2-1.2); Calc. Creatinine Clearance 149 mL/min (70-130); Calcium 8.1 mg/dL (7.8-10.44); Carbon Dioxide 25 mmol/L (23-31); Chloride 102 mmol/L (98-107); Estimated GFR-MDRD Greater than 90; Globulin 3.6 g/dL (2.4-3.5); Glucose 116 mg/dL (80-115); Lipase 92 U/L (8-78); Magnesium 2.1 mg/dL (1.6-2.6); Potassium 3.8 mmol/L (3.5-5.1); Protein, Total 6.4 g/dL (5.8-8.1); Sodium 134 mmol/L (136-145)
[2020-06-28 06:44] LABS: Phosphorus 1.5 mg/dL (2.3-4.7)
[2020-06-28] MEDS: Pantoprazole 40 MG VIAL IVP SCH (08:52)
[2020-06-28] MEDS: Polyethylene Glycol 3350 17 GM Packet PO SCH (08:53)
[2020-06-28] MEDS ORDERED: Potassium Phosphate 22 MMOL in Sodium Chloride 0.9% 250 ML 250 ML IVPB SCH (12:00)
--- NOTE | 2020-06-28 12:03 | PRG ---
DATE OF SERVICE: 06/28/2020 SUBJECTIVE: Mr. Vargas belly feels better. OBJECTIVE: VITAL SIGNS: Temperature is 98.2, pulse is 80, blood pressure 135/71. ABDOMEN: Still protuberant but softer, less tender. LABORATORY DATA: White count 16.1, hemoglobin 14, and platelet count 264. Sodium 134, BUN and creatinine are 11 and 0.6, potassium 3.8, phosphorus 1.5, calcium 8.1, and bilirubin is down to 3.1 from 4.9. AST and ALT down to 41 and 127 from 66 and 189. Lipase is 92. ASSESSMENT: Biliary pancreatitis, improving. The patient is scheduled for a laparoscopic cholecystectomy today with IOC as he had dilated ducts on admission CT and elevated evidences of obstructive jaundice. He has had no signs of cholangitis, continues to improve. He is on some Zosyn now and that would be reasonable. If he spikes fever or any signs of worsening after laparoscopic cholecystectomy, he would need a repeat scan to evaluate for necrosis. We will continue to follow along with you and will be available for ERCP if IOC is positive. Job ID: [id number]
[2020-06-28] MEDS ORDERED: EPINEPHrine 1 MG/ML AMP ONE (16:10)
[2020-06-28] MEDS ORDERED: Bupivacaine 0.25% HCL 30 ML VIAL ONE (16:10)
[2020-06-28] MEDS ORDERED: Sodium Chloride 0.9% 100 ML ONE (16:12)
[2020-06-28] MEDS ORDERED: Piperacillin/Tazobactam 3.375 GM VIAL ONE (16:12)
[2020-06-28] MEDS ORDERED: Fentanyl 100 MCG/2 ML VIAL ONE (16:14)
[2020-06-28] MEDS ORDERED: Iothalamate Meglumine 60% 50 ML VIAL FS ONE (16:34)
[2020-06-28] MEDS ORDERED: Meperidine HCl/PF 25 MG/ML VIAL SLOW IVP PRN (17:13)
[2020-06-28] MEDS ORDERED: Morphine Sulfate 2 MG/ML SYRINGE SLOW IVP PRN (17:13)
[2020-06-28] MEDS ORDERED: Promethazine HCl 25 MG/ML VIAL IM PRN (17:13)
[2020-06-28] MEDS ORDERED: Ondansetron HCl/PF 4 MG/2 ML Vial IVP PRN (17:13)
[2020-06-28] MEDS ORDERED: Promethazine HCl 25 MG/ML VIAL SLOW IVP PRN (17:13)
[2020-06-28] MEDS ORDERED: Ketorolac Tromethamine 30 MG/ML VIAL IVP PRN (17:13)
[2020-06-28] MEDS ORDERED: PACU-Morphine 4MG/ML VIAL SLOW IVP PRN (17:13)
[2020-06-28] MEDS ORDERED: HYDROmorphone 2 MG/ML VIAL SLOW IVP PRN (17:13)
--- NOTE | 2020-06-28 18:03 | RAD ---
Intraoperative cholangiogram fluoroscopy HISTORY: Biliary obstruction. FINDINGS: Intraoperative fluoroscopy was provided for cholangiogram as performed by Dr. Graham there are 3 spot fluoroscopic images showing operative hardware overlying the gallbladder fossa. Contrast opacification of a distended cystic duct and biliary system with irregularity of the biliary kramer evident. A rounded filling defect at the central aspect of the common duct is estimated at 0.3 cm. Correlate with real-time findings for stone versus air bubble. Contrast passes into the duodenum. Fluoroscopy time 35 seconds.
[2020-06-28] MEDS: Enoxaparin Sodium 40 MG/0.4 ML SYRINGE SC SCH (19:57)
--- NOTE | 2020-06-28 22:58 | PDOC.HOSPP ---
- Subjective Encounter Date: 06/28/20 Encounter Time: 08:00 Subjective: Patient was seen and examined in bed. Abdominal pain improved but still persistent. He denied any chest pain or shortness of breath. - Objective Vital Signs & Weight: Vital Signs (12 hours) Temp Pulse Resp BP BP Pulse Ox 06/28/20 19:28 98.5 F 81 20 132/70 94 L 06/28/20 18:43 97.5 F L 83 20 138/68 98 06/28/20 12:25 98.3 F 76 18 137/71 96 Weight Admit Weight 219 lb 12.814 oz Weight 219 lb 12.814 oz I&O: 06/27/20 06/28/20 06/29/20 06:59 06:59 06:59 Intake Total 4290 2200 Output Total 600 Balance 4290 1600 Result Diagrams: 06/28/20 05:47 06/28/20 05:47 Hospitalist ROS - Medication Medications: Active Medications Generic Name Dose Route Start Last Admin Trade Name Freq PRN Reason Stop Dose Admin Acetaminophen 650 mg 06/26/20 01:25 06/27/20 06:03 Acetaminophen 325 Mg Tab PO 650 mg Q4H PRN Administration Headache/Fever or Pain Enoxaparin Sodium 40 mg 06/27/20 21:00 06/28/20 19:57 Enoxaparin Sodium 40 Mg/0.4 Ml Syringe SC Not Given 2100 SANTIAGO Potassium Chloride/Dextrose/Sod Cl 1,000 mls @ 125 mls/hr 06/27/20 07:00 06/28/20 11:00 D5 1/2 Ns W/40 Meq Kcl IV 1,000 mls .Q8H SANTIAGO Administration Piperacillin Sod/Tazobactam 100 mls @ 200 mls/hr 06/27/20 12:00 06/28/20 19:11 Sod 3.375 gm/ Sodium Chloride IVPB Not Given Q6HR SANTIAGO Morphine Sulfate 4 mg 06/26/20 01:20 06/28/20 19:57 Morphine 4 Mg/Ml Vial SLOW IVP 4 mg Q4H PRN Administration PAIN 6-10 Ondansetron HCl 4 mg 06/25/20 07:41 06/27/20 06:04 Ondansetron Pf 4 Mg/2 Ml Vial IVP 4 mg Q6H PRN Administration Nausea/Vomiting Pantoprazole Sodium 40 mg 06/26/20 09:00 06/28/20 08:52 Pantoprazole 40 Mg Vial IVP 40 mg DAILY SANTIAGO Administration - Exam General Appearance: awake alert Heart: RRR, no murmur, no gallops, normal peripheral pulses Respiratory: no wheezes, no rales, no ronchi Gastrointestinal: normal bowel sounds, no palpable masses, tender to palpation Extremities: no cyanosis, no clubbing, no edema Psychiatric: normal affect, A&O x 3 Hosp A/P - Plan This is a 69-year-old male with a history of ulcerative colitis status post subtotal colectomy and ileorectal anastomosis on admission on account of gallstone pancreatitis. He is due for laparoscopic cholecystectomy today Gallstone pancreatitis He is on Zosyn Plan for laparoscopic cholecystectomy today N.p.o. after midnight History of ulcerative colitis On sulfasalazinecurrently held We will monitor. Hypokalemia Replacement protocol Obesity VT prophylaxis Lovenox CODE STATUSfull
[2020-06-29] MEDS: D5 1/2 NS w/40 mEq KCL 1,000 ML IV SCH ×3 (00:34→18:08)
[2020-06-29] MEDS: Morphine 4 MG/ML VIAL SLOW IVP PRN ×2 (00:34→04:35)
[2020-06-29] MEDS: Piperacillin/Tazobactam 3.375 GM in Sodium Chloride 0.9% 100 ML IVPB SCH ×4 (00:35→18:42)
[2020-06-29 05:51] LABS: #Basophils 0.1 thou/uL (0.0-0.2); #Eosinphils 0.2 thou/uL (0.0-0.7); #Lymphocytes 1.7 thou/uL (1.20-3.40); #Monocytes 1.4 thou/uL (0.11-0.59); #Neutrophils 10.5 thou/uL (1.40-6.50); %Basophils 0.4 % (0.0-1.0); %Eosinophils 1.2 % (0.0-10.0); %Lymphocytes 12.3 % (21.0-51.0); %Monocytes 9.8 % (0.0-10.0); %Neutrophils 76.3 % (42.0-75.0); Hemoglobin 13.7 g/dL (14.0-18.0); Mean Corpuscular HGB CONC 33.6 g/dL (32.0-36.0); Mean Corpuscular Hemoglobin 31.1 pg (27.0-31.0); Mean Corpuscular Volume 92.4 fL (78.0-98.0); Mean Platelet Volume 7.2 fL (7.4-10.4); Platelet Count 300 thou/uL (130-400); RBC Distribution Width 12.4 % (11.5-14.5); Red Blood Cell (RBC) Count 4.41 mill/uL (4.70-6.10); White Blood Cell (WBC) Count 13.7 thou/uL (4.8-10.8)
[2020-06-29 06:14] LABS: ALT (SGPT) 136 U/L (8-55); AST (SGOT) 98 U/L (5-34); Albumin 2.7 g/dL (3.4-4.8); Alkaline Phosphatase 176 U/L (40-110); Anion Gap 12 mmol/L (10-20); BUN (Urea Nitrogen) 9 mg/dL (8.4-25.7); Bilirubin, Total 5.3 mg/dL (0.2-1.2); Calc. Creatinine Clearance 156 mL/min (70-130); Calcium 8.4 mg/dL (7.8-10.44); Carbon Dioxide 24 mmol/L (23-31); Chloride 104 mmol/L (98-107); Estimated GFR-MDRD Greater than 90; Globulin 4.1 g/dL (2.4-3.5); Glucose 107 mg/dL (80-115); Potassium 3.8 mmol/L (3.5-5.1); Protein, Total 6.8 g/dL (5.8-8.1); Sodium 136 mmol/L (136-145)
[2020-06-29 06:17] LABS: Phosphorus 1.8 mg/dL (2.3-4.7)
[2020-06-29] MEDS ORDERED: Potassium Phosphate 15 MMOL in Sodium Chloride 0.9% 100 ML IVPB SCH (07:00)
--- NOTE | 2020-06-29 10:09 | PRG ---
DATE OF SERVICE: 06/29/2020 SUBJECTIVE: Mr. Marroquin is postoperative day #1 from laparoscopic cholecystectomy with intraoperative cholangiogram. His cholangiogram revealed stones present within a common bile duct. He is scheduled for an ERCP this morning per Dr. Hirsch. The patient was seen in the preoperative holding area. He notes minimal appropriate abdominal discomfort. He tolerated liquids until he was made n.p.o. again. OBJECTIVE: VITAL SIGNS: On examination today, he is afebrile. Pulse is 85, blood pressure 145/79. LUNGS: Clear to auscultation. ABDOMEN: Soft with appropriate minimal shady-incisional tenderness. LABORATORY STUDIES: Revealed that his hemoglobin stable at 13.7, white blood cell count is slightly down at 13.7. Chemistry profile reveals normal electrolytes. His bilirubin has gone back up from 3.1 yesterday to 5.3 today. ASSESSMENT: The patient who is status post laparoscopic cholecystectomy with residual choledocholithiasis. He is to have endoscopic retrograde cholangiopancreatography today for duct clearance. He is stable from a surgical standpoint, will be ready for discharge whenever he is cleared by Gastroenterology. Job ID: [id number]
[2020-06-29] MEDS ORDERED: Lidocaine 1% PF 5 ML VIAL ONE (10:35)
[2020-06-29] MEDS ORDERED: Ondansetron PF 4 MG/2 ML Vial ONE (10:35)
[2020-06-29] MEDS ORDERED: PROPOFOL 200 MG/20 ML VIAL ONE (10:35)
[2020-06-29] MEDS ORDERED: Rocuronium Bromide 10 MG/ML (10ML VIAL) ONE (10:35)
[2020-06-29] MEDS ORDERED: Dexamethasone 20 MG/5 ML VIAL ONE (10:35)
[2020-06-29] MEDS ORDERED: Fentanyl 100 MCG/2 ML VIAL ONE (10:46)
[2020-06-29] MEDS ORDERED: SUGAMMADEX SODIUM 500 MG/5 ML VIAL ONE (10:47)
[2020-06-29] MEDS ORDERED: Iothalamate Meglumine 60% 50 ML VIAL FS ONE (10:47)
[2020-06-29] MEDS ORDERED: Indomethacin 50 MG SUPP ONE (10:50)
[2020-06-29] MEDS ORDERED: Sodium Chloride 0.9% 100 ML ONE (10:53)
[2020-06-29] MEDS ORDERED: Piperacillin/Tazobactam 3.375 GM VIAL ONE (10:53)
[2020-06-29] MEDS: Pantoprazole 40 MG VIAL IVP SCH (12:00)
[2020-06-29] MEDS: Polyethylene Glycol 3350 17 GM Packet PO SCH (12:00)
[2020-06-29] MEDS ORDERED: Meperidine HCl/PF 25 MG/ML VIAL ONE (12:16)
[2020-06-29] MEDS ORDERED: Ondansetron HCl/PF 4 MG/2 ML Vial IVP PRN (12:17)
[2020-06-29] MEDS ORDERED: Meperidine HCl/PF 25 MG/ML VIAL SLOW IVP PRN (12:17)
[2020-06-29] MEDS ORDERED: Promethazine HCl 25 MG/ML VIAL IM PRN (12:17)
[2020-06-29] MEDS ORDERED: Promethazine HCl 25 MG/ML VIAL SLOW IVP PRN (12:17)
[2020-06-29] MEDS ORDERED: HYDROmorphone 2 MG/ML VIAL SLOW IVP PRN (12:17)
--- NOTE | 2020-06-29 12:28 | RAD ---
EXAM: ERCP HISTORY: Common bile duct stones COMPARISON: Cholangiogram 06/28/2020, gallbladder ultrasound 06/25/2020, CT abdomen/pelvis 06/25/2020 FINDINGS: Limited intraoperative fluoroscopic views were taken during a an ERCP. Common bile duct is mildly enlarged and there appear to be multiple filling defects within the common bile duct on the initial image. These are not seen on the subsequent image and may have been removed. No leakage from the common bile duct. No abnormality of the intrahepatic bile ducts. IMPRESSION: Removal of common bile duct filling defects
--- NOTE | 2020-06-29 12:29 | OP ---
DATE OF PROCEDURE: 06/29/2020 LAPEL STITCHER SURGEON: None. PROCEDURE PERFORMED: Endoscopic retrograde cholangiopancreatography with biliary sphincterotomy and stone extraction. INDICATIONS: 1. Gallstone pancreatitis, clinically improved. 2. Choledocholithiasis, based on persistent LFT elevation, and positive intraoperative cholangiogram yesterday. MEDICATIONS: 1. See Anesthesia record. 2. Indomethacin 100 mg per rectum. FINDINGS: After discussion of the risks, benefits, and alternatives of the procedure, informed consent was obtained and witnessed. Pre-endoscopic cardiopulmonary examination was satisfactory. Time-out was performed before sedation was achieved. Sedation was achieved with Anesthesia assistance in the endoscopy unit. DESCRIPTION OF PROCEDURE: The patient was placed in a semi-prone position on the fluoroscopy table under general anesthesia. A Pentax adult side-viewing duodenoscope was inserted into the mouth and passed down the esophagus, beyond the stomach and into the second portion of the duodenum under indirect visualization. Indirect views of the esophageal and gastric and duodenal mucosa appeared normal. The ampulla was brought into view with the endoscope in the short position. There was no spontaneous passage of bile from the ampulla, though the ampulla otherwise appeared normal. Using a triple-lumen DomeTip sphincterotome and a 0.035 guidewire, we were able to selectively cannulate the common bile duct. The guidewire was passed up into the left intrahepatic duct. A biliary cholangiogram was performed. This demonstrated mild dilation of the common bile duct to about 1 cm in size with a single circular filling defect in the mid common bile duct. At this point, a generous biliary sphincterotomy was performed. A wire exchange was then performed exchanging the sphincterotome for a 9 to 12 mm extraction balloon. The balloon was passed up into the common bile duct and multiple sweeps were made with the balloon partially and fully inflated. In this way, we were able to extract the stone as well as multiple other stone fragments and a moderate amount of biliary sludge from the common bile duct. After this, we performed irrigation of the common bile duct with sterile water, 30 mL. Following irrigation, the return from the duct was clear. We then performed an occlusion cholangiogram, which demonstrated no persistence of any filling defect within the bile duct. One further balloon sweep was made to sweep out excess contrast. Then, the working apparatus was completely withdrawn. The upper endoscope was completely withdrawn, suctioning out air and fluid, and the patient was allowed to recover. The patient tolerated the procedure well. There were no immediate postprocedure complications. Postprocedure fluoroscopic images demonstrated no retroperitoneal or subdiaphragmatic free air. IMPRESSION: 1. Choledocholithiasis. 2. Successful endoscopic retrograde cholangiopancreatography with biliary sphincterotomy and balloon extraction of stone fragments and sludge from the common bile duct. RECOMMENDATION: 1. Clear liquid diet today. 2. Follow up LFTs tomorrow. 3. Monitor for any signs of worsening pancreatitis. Job ID: [id number]
[2020-06-29] MEDS ORDERED: Melatonin 3 MG TAB PO PRN (20:42)
[2020-06-29] MEDS: Enoxaparin Sodium 40 MG/0.4 ML SYRINGE SC SCH (20:50)
--- NOTE | 2020-06-29 22:48 | PDOC.HOSPP ---
- Subjective Encounter Date: 06/29/20 Encounter Time: 20:00 Subjective: Patient was seen and examined in bed today after ERCP. Was feeling very well and had literally almost no pain. Any chest pain or shortness of breath He knows he would want to go home tomorrow - Objective Vital Signs & Weight: Vital Signs (12 hours) Temp Pulse Resp BP BP Pulse Ox 06/29/20 20:00 98.1 F 77 20 143/75 H 95 06/29/20 16:00 98.7 F 76 16 143/75 H 96 06/29/20 15:00 98.7 F 74 16 145/76 H 96 06/29/20 14:00 98.7 F 91 16 141/76 H 95 Weight Admit Weight 219 lb 12.814 oz Weight 219 lb 12.814 oz I&O: 06/28/20 06/29/20 06/30/20 06:59 06:59 06:59 Intake Total 2200 2720 1800 Output Total 600 1250 1300 Balance 1600 1470 500 Result Diagrams: 06/29/20 05:37 06/29/20 05:37 Hospitalist ROS - Medication Medications: Active Medications Generic Name Dose Route Start Last Admin Trade Name Freq PRN Reason Stop Dose Admin Acetaminophen 650 mg 06/26/20 01:25 06/27/20 06:03 Acetaminophen 325 Mg Tab PO 650 mg Q4H PRN Administration Headache/Fever or Pain Enoxaparin Sodium 40 mg 06/27/20 21:00 06/29/20 20:50 Enoxaparin Sodium 40 Mg/0.4 Ml Syringe SC Not Given 2100 SANTIAGO Potassium Chloride/Dextrose/Sod Cl 1,000 mls @ 125 mls/hr 06/27/20 07:00 06/29/20 18:08 D5 1/2 Ns W/40 Meq Kcl IV Not Given .Q8H SANTIAGO Piperacillin Sod/Tazobactam 100 mls @ 200 mls/hr 06/27/20 12:00 06/29/20 18:42 Sod 3.375 gm/ Sodium Chloride IVPB 100 mls Q6HR SANTIAGO Administration Melatonin 6 mg 06/29/20 20:42 06/29/20 20:49 Melatonin 3 Mg Tab PO 6 mg HS PRN Administration Insomnia Morphine Sulfate 4 mg 06/26/20 01:20 06/29/20 04:35 Morphine 4 Mg/Ml Vial SLOW IVP 4 mg Q4H PRN Administration PAIN 6-10 Ondansetron HCl 4 mg 06/25/20 07:41 06/27/20 06:04 Ondansetron Pf 4 Mg/2 Ml Vial IVP 4 mg Q6H PRN Administration Nausea/Vomiting Pantoprazole Sodium 40 mg 06/26/20 09:00 06/29/20 12:00 Pantoprazole 40 Mg Vial IVP Not Given DAILY [facility] Polyethylene Glycol 17 gm 06/29/20 09:00 06/29/20 12:00 Polyethylene Glycol 3350 17 Gm Packet PO Not Given DAILY SANTIAGO - Exam General Appearance: awake alert Heart: RRR, no murmur, no gallops Gastrointestinal: soft, non-distended (Mild), normal bowel sounds, tender to palpation Extremities: no cyanosis, no clubbing, no edema Neurological: cranial nerve grossly intact, no weakness Psychiatric: normal affect, A&O x 3 Hosp A/P - Plan This is a 69-year-old male with a history of ulcerative colitis status post subtotal colectomy and ileorectal anastomosis on admission on account of gallsto ne pancreatitis. Status post laparoscopic cholecystectomy and ERCP with significant relief. Possible discharge Gallstone pancreatitis Status post lap cholecystectomy and ERCP Feeling much better Possible discharge History of ulcerative colitis On sulfasalazinecurrently held We will monitor. Hypokalemia Replacement protocol Obesity VT prophylaxis Lovenox CODE STATUSfull
[2020-06-30] MEDS: Piperacillin/Tazobactam 3.375 GM in Sodium Chloride 0.9% 100 ML IVPB SCH ×2 (02:28→08:46)
[2020-06-30] MEDS: D5 1/2 NS w/40 mEq KCL 1,000 ML IV SCH ×2 (02:31→10:01)
[2020-06-30 07:32] VITALS: BP 149/80; TEMP 98.1
[2020-06-30 08:36] LABS: ALT (SGPT) 165 U/L (8-55); AST (SGOT) 121 U/L (5-34); Alkaline Phosphatase 193 U/L (40-110); Anion Gap 11 mmol/L (10-20); BUN (Urea Nitrogen) 13 mg/dL (8.4-25.7); Bilirubin, Total 4.9 mg/dL (0.2-1.2); Calc. Creatinine Clearance 133 mL/min (70-130); Calcium 9.1 mg/dL (7.8-10.44); Carbon Dioxide 26 mmol/L (23-31); Chloride 104 mmol/L (98-107); Estimated GFR-MDRD Greater than 90; Globulin 4.2 g/dL (2.4-3.5); Glucose 132 mg/dL (80-115); Potassium 4.3 mmol/L (3.5-5.1); Protein, Total 7.2 g/dL (5.8-8.1); Sodium 137 mmol/L (136-145)
[2020-06-30] MEDS: Pantoprazole 40 MG VIAL IVP SCH (08:47)
[2020-06-30] MEDS: Polyethylene Glycol 3350 17 GM Packet PO SCH (08:47)
[2020-06-30 08:59] LABS: #Basophils 0.1 thou/uL (0.0-0.2); #Neutrophils 11.3 thou/uL (1.40-6.50); %Basophils 0.4 % (0.0-1.0); %Eosinophils 0.3 % (0.0-10.0); %Lymphocytes 14.2 % (21.0-51.0); %Monocytes 6.7 % (0.0-10.0); %Neutrophils 78.4 % (42.0-75.0); Hemoglobin 15.5 g/dL (14.0-18.0); Mean Corpuscular Hemoglobin 30.5 pg (27.0-31.0); Mean Corpuscular Volume 95.4 fL (78.0-98.0); Mean Platelet Volume 7.4 fL (7.4-10.4); Platelet Count 325 thou/uL (130-400); RBC Distribution Width 12.8 % (11.5-14.5); White Blood Cell (WBC) Count 14.4 thou/uL (4.8-10.8)
--- NOTE | 2020-06-30 09:35 | PRG ---
DATE OF SERVICE: 06/30/2020 SUBJECTIVE: Mr. Marroquin is postoperative day #2 from laparoscopic cholecystectomy and intraoperative cholangiogram, which revealed persistent choledocholithiasis. He had ERCP performed yesterday per Dr. Hirsch with successful removal of remaining stone and sludge within common bile duct. Mr. Marroquin this morning tells me that he is feeling well. He has been tolerating his liquid diet uneventfully. He denies nausea or vomiting. He tells me that his pain is substantially improved. He had been maintained on IV antibiotics and has still been receiving Zosyn as his white blood cell count was going up while he was being observed in regard to his pancreatitis. OBJECTIVE: VITAL SIGNS: Today, he is afebrile. Pulse is 81, blood pressure 149/80. LUNGS: Clear to auscultation. CARDIAC: Regular rate and rhythm. ABDOMEN: Soft, nontender, nondistended. Laparoscopic incisions are nicely healed and nontender. Bowel sounds are present and normoactive. LABORATORY DATA: His CBC is still pending. His metabolic panel shows that his bilirubin level dropped from 5.3 yesterday to 4.9 today. His alkaline phosphatase went up somewhat from 176 to 193. Pancreatic enzyme was not checked today. ASSESSMENT AND PLAN: The patient is doing well following his cholecystectomy and subsequent ERCP. I suspect that the liver function test elevation is inflammatory related to the sphincterotomy associated with his ERCP. I anticipate all this will resolve uneventfully. His lack of discomfort is particularly reassuring. He is stable for discharge from a surgical standpoint. I would like to see him back in my office in 2 weeks for followup. He has no substantial pain and does not require narcotic pain medication at discharge. I have recommended to use [id number] analgesics as necessary. I spoke with him regarding his activity restrictions and his external wound care. I also spoke with him regarding the findings of fatty liver during his surgery. I recommend weight loss to ameliorate the problems associated with this. Job ID: [id number]
--- NOTE | 2020-06-30 15:41 | PRG ---
DATE OF SERVICE: 06/30/2020 SUBJECTIVE: Mr. Marroquin has minimal abdominal pain today. He has tolerated liquids well. OBJECTIVE: VITAL SIGNS: His temperature is 98.1, pulse 81, blood pressure 149/80. GENERAL: He is in no acute distress. Alert and oriented x3. LUNGS: Clear to auscultation bilaterally. HEART: Regular rate and rhythm without murmur. ABDOMEN: Soft. Minimal tenderness in the epigastric region without guarding. Bowel sounds are present. EXTREMITIES: Trace lower extremity edema. LABORATORY DATA: White blood cell count 14.4, hemoglobin 15.5, platelets 325. INR 1.1. Bilirubin 4.9, AST 121, ALT 165, alkaline phosphatase 193. IMPRESSION: 1. Gallstone pancreatitis, clinically improved. 2. Choledocholithiasis, status post sphincterotomy and endoscopic retrograde cholangiopancreatography with balloon stone extraction yesterday. He is also post cholecystectomy. RECOMMENDATIONS: 1. We will slowly advance his diet at home. The patient does not wish to wait in the hospital any longer to see how he tolerates solid diet and is wanting to be discharged home more immediately. He has had marked improvement in his pain. He had a normal bowel movement today. 2. Cholestasis is secondary to choledocholithiasis. His liver function tests remain elevated and it should trend down. He was encouraged to schedule followup appointment with Dr. Queen in a couple of weeks to recheck his liver tests. 3. He will discharge home today. 4. Follow up with Dr. Queen in 2 weeks. Job ID: [id number]
== END 2020-06-30 13:49 | disposition home or self-care (01) | DRG 439 ==
LOC: ERS 02:54 → T4-B 05:45 → OBSVTOIN 05:45
PROVIDERS: ADMIT Internal Medicine; ATTEND Student in an Organized Health Care Education/Training Program
PROC: 0FC98ZZ Extirpation of Matter from Common Bile Duct, Via Natural or Artificial Opening Endoscopic (ICD-10-PCS; principal; 2020-06-30)
DX: K85.10 Biliary acute pancreatitis without necrosis or infection (principal); K80.51 Calculus of bile duct without cholangitis or cholecystitis with obstruction; Z20.828 Contact with and (suspected) exposure to other viral communicable diseases; H40.9 Unspecified glaucoma; E80.6 Other disorders of bilirubin metabolism; E87.6 Hypokalemia; E87.8 Other disorders of electrolyte and fluid balance, not elsewhere classified; Z79.82 Long term (current) use of aspirin; Z79.899 Other long term (current) drug therapy; Z68.33 Body mass index [BMI] 33.0-33.9, adult; Z87.11 Personal history of peptic ulcer disease
CPT/HCPCS: 36415; 47532; 74177; 74330; 76705; 80048; 80053; 80061; 80076; 82248; 83605; 83690; 83735; 84100; 84484; 85025; 85610; 85730; 86140; 87635; 88304; 93005; 94760; 96372; 96374; 96375; C9113; J0171; J0500; J1100; J1610; J2175; J2270; J2405; J2543; J2704; J3010; J3475; J3480; J3490; J7050; Q9967; S0020; U0003

== ENCOUNTER 2021-08-02 10:56 | Outpatient (CLI) | payer MEDICARE | END 2021-08-02 10:57 | disposition home or self-care (01) | LOC: MRI 10:56 | PROVIDERS: ATTEND Internal Medicine | DX: M47.22 Other spondylosis with radiculopathy, cervical region (principal); M48.02 Spinal stenosis, cervical region | CPT/HCPCS: 72141 ==

== ENCOUNTER 2024-08-08 07:21 | Emergency (ER) | payer OTHER ==
[2024-08-08] MEDS ORDERED: Morphine 4 MG/ML VIAL ONE ×2 (07:52→08:58)
[2024-08-08 07:53] LABS: #Basophils 0.13 10x3/uL (0.0-0.2); %Basophils 1.1 % (0.0-1.0); %Eosinophils 3.2 % (0.0-10.0); %Monocytes 7.5 % (0.0-10.0); %Neutrophils 65.5 % (42.0-75.0); Hemoglobin 15.3 g/dL (14.0-18.0); Mean Corpuscular Volume 91.1 fL (78.0-98.0); Mean Platelet Volume 9.3 fL (7.4-10.4); Platelet Count 314 10x3/uL (130-400); RBC Distribution Width 13.3 % (11.5-14.5); Red Blood Cell (RBC) Count 4.94 mill/uL (4.70-6.10)
[2024-08-08 08:18] LABS: ALT (SGPT) 37 U/L (8-55); AST (SGOT) 26 U/L (5-34); Albumin 3.5 g/dL (3.4-4.8); Alkaline Phosphatase 76 U/L (40-110); Anion Gap 16 mmol/L (10-20); BUN (Urea Nitrogen) 19 mg/dL (8.4-25.7); Bilirubin, Total 0.7 mg/dL (0.2-1.2); Calc. Creatinine Clearance 0 mL/min (70-130); Calcium 9.3 mg/dL (7.8-10.44); Carbon Dioxide 23 mmol/L (23-31); Chloride 107 mmol/L (98-107); Estimated GFR 94; Globulin 3.9 g/dL (2.4-3.5); Glucose 153 mg/dL (83-110); Lipase 22 U/L (8-78); Potassium 3.6 mmol/L (3.5-5.1); Protein, Total 7.4 g/dL (5.8-8.1); Sodium 142 mmol/L (136-145)
[2024-08-08 10:02] LABS: Bacteria/HPF None Seen HPF (None Seen); Bilirubin Negative (Negative); Blood, Urine 3+ (Negative); CAUTI Indications for Culture Dysuria,urgency,freq; Clarity Clear (Clear); Glucose, Urine (Dipstick) Normal (Negative); Ketone, Urine Negative (Negative); Leukocyte Negative Leu/uL (Negative); Nitrite Negative (Negative); Protein, Urine (Dipstick) 20 mg/dL (Neg-Trace); RBC/HPF Greater than 50 HPF (0-3); Specific Gravity, Urine 1.056 (1.002-1.036); Squamous Epithelial 0-3 HPF (0-3); Urobilinogen Normal mg/dL (Less than 2); pH, Urine 5.5 (5.0-9.0)
[2024-08-08 10:04] LABS: Urine Culture Reflex Yes Yes
[2024-08-08] MEDS ORDERED: Iopamidol-370 76% 500 ML MDV (1 ML CHARGE) ONE (10:44)
== END 2024-08-08 10:35 | disposition home or self-care (01) ==
LOC: ERS 07:21
DX: N20.0 Calculus of kidney (principal); D72.829 Elevated white blood cell count, unspecified
CPT/HCPCS: 74177; 80053; 81001; 83690; 85025; 87086; J2272; 36415; 96374; 96376; Q9967

== ENCOUNTER 2024-08-11 12:20 | Emergency (ER) | payer OTHER | END 2024-08-11 13:11 | disposition home or self-care (01) | LOC: ERS 12:20 | DX: R10.9 Unspecified abdominal pain (principal); Z76.0 Encounter for issue of repeat prescription; Z87.891 Personal history of nicotine dependence | CPT/HCPCS: 99283 ==